=== PATIENT | male | born 1975 | race Asian ===

== ENCOUNTER → 2020-03-22 18:56 | Outpatient (CLI) | payer OTHER, SELFPAY ==
--- NOTE | 2020-03-22 18:58 | DI.MRI.S_ITS ---
PROCEDURE: MR KNEE LT WO CON INDICATIONS: PAIN IN LEFT KNEE TECHNIQUE: Noncontrast sagittal PD fast spin echo and T2 fast spin echo with fat saturation, sagittal 3-D FLASH with fat saturation; coronal T1 spin echo and PD fast spin echo with fat saturation, and axial PD fast spin echo with fat saturation through the knee. COMPARISON: None. FINDINGS: Image quality: Excellent. Menisci: The medial and lateral menisci demonstrate normal morphology and internal signal. The meniscal root ligaments appear intact. Cruciate ligaments: The anterior and posterior cruciate ligaments appear intact. Medial structures: There is thickening and increased signal intensity within the proximal medial collateral ligament with surrounding edema, compatible with a grade 2 sprain. The semimembranosus tendon insertions and meniscocapsular junction appear intact. Visualized portions of the pes anserinus tendons appear normal. No abnormal bursal fluid. Lateral structures: The lateral collateral ligament, long and short heads of the biceps femoris tendon appear intact. The popliteus tendon appears intact. No signs of posterolateral corner injury. Iliotibial band appears normal. Anterior structures: The quadriceps and patellar tendons appear intact. Patellar alignment is normal. No femoral trochlear dysplasia or ventral trochlear prominence. No edema in the infrapatellar fat pad. Bones and cartilage: No bone marrow contusions or fractures. The cartilage of the medial and lateral femorotibial compartments appears normal in thickness. There is deep cartilage fissuring in the medial patellar facet. Joint space: A small joint effusion is present. No significant medial popliteal cyst is seen. IMPRESSION: 1. Grade 2 sprain of the proximal medial collateral ligament. 2. Intact cruciate ligaments. No meniscal tear is seen. There is no acute trabecular bone injury. 3. Deep cartilage fissuring in the medial patellar facet. 4. Small joint effusion. Dictated by: Rishi Kapadia M.D. on 03/23/2020 at 9:00 Approved by: Rishi Kapadia M.D. on 03/23/2020 at 9:07
== END ==
PROVIDERS: Referring Provider Student in an Organized Health Care Education/Training Program; Visit Provider Student in an Organized Health Care Education/Training Program
DX: M25.562 Pain in left knee (principal); S83.412A Sprain of medial collateral ligament of left knee, initial encounter; M25.462 Effusion, left knee
CPT/HCPCS: 73721

== ENCOUNTER → 2020-11-20 09:30 | Outpatient (CLI) | payer OTHER, SELFPAY ==
[2020-11-20 10:33] LABS: COVID19 -Nasal RAPID Negative (Negative)
== END ==
PROVIDERS: Visit Provider Nurse Practitioner Family
DX: Z20.822 Contact with and (suspected) exposure to COVID-19 (principal); J02.9 Acute pharyngitis, unspecified; R05.9 Cough, unspecified
CPT/HCPCS: 87635

== ENCOUNTER 2022-05-26 12:18 | Emergency (ER) | payer OTHER, SELFPAY ==
[2022-05-26 12:27] VITALS: BP 139/83; PULSE 81; RESP 16; TEMP 36.8; O2SAT 98; BMI 23.0
[2022-05-26 13:11] LABS: Strep Grp A by PCR Rapid Positive (Negative)
[2022-05-26 13:16] LABS: COVID19 -Nasal RAPID Negative (Negative)
--- NOTE | 2022-05-26 13:16 | DI.CT.S_ITS ---
PROCEDURE: CT SOFT TISSUE NECK W CON INDICATIONS: rt peritonsillar abscess vs deep neck infection TECHNIQUE: After the administration of intravenous contrast, 3.0 mm axial sections acquired from the sella to the aortic arch. Additional oblique axial 3.0 mm sections acquired through the pharynx. 3 mm thick coronal and sagittal reformats were generated. For radiation dose reduction, the following was used: automated exposure control. COMPARISON: None. FINDINGS: Image quality: There is artifact associated with the metallic dental work. Lymph nodes: No enlarged lymph nodes seen throughout the neck. Vessels: Visualized vasculature appears patent. Neck spaces: In this patient with this given history, scrutiny is given to the right tonsil. Both tonsils appears swollen. Although poorly seen, secondary to streak artifact, there is mild fluid seen within the deep aspect of the right tonsil, as on series 2, image 33 and on series 6, image 33, measuring 1.3 cm. Mild mass effect can be seen upon the airway, as on series 6, image 33. There is also swelling of the palate seen, as on series 5, image 29 and on series 2, image 28. Swelling is also seen along the right aspect of the epiglottis, as seen on series 2, image 45. Glands: The parotid and submandibular glands appear normal. Thyroid gland demonstrates no significant abnormality. Miscellaneous: Visualized brain and orbits appear normal. Lung apices appear clear. Superficial soft tissues appear normal. Bones: No suspicious bony lesions. Visualized sinuses and mastoids appear unremarkable. IMPRESSION: Prominent generalized swelling seen involving the oropharynx, which is worse on the right than on the left. Likely early phlegmon seen within the right tonsil, yet without a drainable abscess. Mild mass effect can be seen upon the airway. ENT consultation is recommended. Dictated by: Ghassan Clark M.D. on 05/26/2022 at 14:20 Approved by: Ghassan Clark M.D. on 05/26/2022 at 14:23
--- NOTE | 2022-05-26 14:24 | ED.URI ---
HPI - URI/Sore Throat <GÉNESIS Sánchez - Last Filed: 05/26/22 16:32> General Chief Complaint: Upper Respiratory Symptoms Stated Complaint: fells like there is a throat infection, swelling Time Seen by Provider: 05/26/22 12:44 Mode of arrival: Ambulatory History of Present Illness HPI Narrative: This is a 47-year-old presents to the emergency department with a sore throat with swelling on the right side primarily for the last week. He endorses fatigue, chills, has not measured a fever but feels like he has gotten more ill and has had more pain as it has progressed in size and pain over the last week. He states that his son recently had a peritonsillar abscess that was drained in the emergency department, treated with antibiotics, and subsequently had a tonsillectomy. Patient has been recently exposed to group a strep. Has not had any antibiotics yet. Denies any allergies, states that he was seeing Dr. Barksdale for his son. He does not have a rash, states that he had difficulty sleeping due to pain and had to take some codeine to get to sleep. Related Data Previous Rx's Medication Instructions Recorded tramadol 50 mg tablet 1 - 2 tab PO Q4HP PRN #10 tabs 11/11/15 benzocaine 15 mg-menthol 3.6 mg 1 ronnie mucous membrane Q2-4H PRN 05/26/22 lozenges (Cepacol Sore Throat sore throat #16 ea (benzocaine-menthol)) clindamycin HCl 300 mg capsule 300 mg PO QID 10 days #40 caps 05/26/22 oxycodone 5 mg tablet 5 mg PO TID PRN pain #14 tabs 05/26/22 prednisone 20 mg tablet 40 mg PO DAILY 5 days #10 tabs 05/26/22 Allergies Allergy/AdvReac Type Severity Reaction Status Date / Time No Known Drug Allergies Allergy Verified 05/26/22 12:31 Review of Systems <GÉNESIS Sánchez - Last Filed: 05/26/22 16:32> Review of Systems ROS Unobtainable: All systems reviewed & are unremarkable except as noted in HPI and below Patient History <GÉNESIS Sánchez - Last Filed: 05/26/22 16:32> Social History Smoking Status: Never smoker Smoking Status: Never smoker tobacco type: vaping alcohol intake frequency: 3 or more drinks per day Substance Use Type: marijuana Exam <GÉNESIS Sánchez - Last Filed: 05/26/22 16:32> Narrative Exam Narrative: Reviewed vitals signs and nursing notes. General: Pleasant, sitting upright, in no acute distress, well groomed, afebrile HEENT: symmetrical facial expressions, moist mucous membranes, neck is supple, right anterior cervical lymphadenopathy, bilateral TMs with serous fluid behind, appear bulging, mild erythema to the right posterior canal, bilateral nares are patent, voice is muffled, large abscess appearing from the right tonsil with distortion of the uvula towards the left, bilateral tonsillar adenopathy, mild exudate to right tonsil CV: regular rate and rhythm, warm extremities Respiratory: normal work of breathing, without tachypnea or hypoxia. GI: abdomen soft, nondistended, without CVA tenderness bilaterally. MSK: moves all extremities, no weakness, normal tone, ambulatory without deficit Skin: brisk capillary refill, without rash or wound Neuro: Mildly muffled speech and normal cognition, A&O x3, GCS 15, no focal motor or sensation deficits Initial Vital Signs Initial Vital Signs: Vital Signs Temperature 98.3 F 05/26/22 12:27 Pulse Rate 81 05/26/22 12:27 Respiratory Rate 16 05/26/22 12:27 Blood Pressure 139/83 05/26/22 12:27 Pulse Oximetry 98 05/26/22 12:27 Oxygen Delivery Method Room Air 05/26/22 12:27 <Pradeep Rubio DO - Last Filed: 05/26/22 15:59> Initial Vital Signs Initial Vital Signs: Vital Signs Temperature 98.3 F 05/26/22 12:27 Pulse Rate 81 05/26/22 12:27 Respiratory Rate 16 05/26/22 12:27 Blood Pressure 139/83 05/26/22 12:27 Pulse Oximetry 98 05/26/22 12:27 Oxygen Delivery Method Room Air 05/26/22 12:27 Course <GÉNESIS Sánchez - Last Filed: 05/26/22 16:32> Orders Ordered: ED Orders 05/26/22 12:35 Strep Grp A by PCR Rapid Stat Throat Culture Stat 05/26/22 12:49 COVID19 -Nasal RAPID Stat 05/26/22 13:16 CT soft tissue neck w con Stat 05/26/22 14:24 CBC Auto Diff [Complete Blood Count AUTO DIFF] Stat CMP [Comprehensive Metabolic Panel] Stat 05/26/22 14:30 Lactate (Lactic Acid) Stat Discontinued Medications Clindamycin HCl (Clindamycin 150 Mg Capsule) 450 mg PO NOW ONE Stop: 05/26/22 13:17 Last Admin: 05/26/22 14:49 Dose: 450 mg Documented By: YFN Dexamethasone (Dexamethasone 4 Mg/Ml Vial) 16 mg IV NOW ONE Stop: 05/26/22 13:17 Last Admin: 05/26/22 15:31 Dose: Not Given Documented By: ALMA Hydromorphone HCl (Hydromorphone 0.5 Mg Inj) 0.5 mg IV NOW ONE Stop: 05/26/22 13:22 Last Admin: 05/26/22 14:56 Dose: 0.5 mg Documented By: YFN Sodium Chloride (Normal Saline 0.9%) 1,000 mls @ 1,000 mls/hr IV BOLUS ONE Stop: 05/26/22 14:21 Last Admin: 05/26/22 14:45 Dose: 1,000 mls/hr Documented By: YNF Dexamethasone 16 mg/ Sodium (Chloride) 51.6 mls @ 206.4 mls/hr IV NOW ONE Stop: 05/26/22 15:29 Last Admin: 05/26/22 15:27 Dose: 206.4 mls/hr Documented By: ALMA Ketorolac Tromethamine (Ketorolac 30 Mg/Ml Vial) 30 mg IV NOW ONE Stop: 05/26/22 13:22 Last Admin: 05/26/22 14:48 Dose: 30 mg Documented By: YFN Pantoprazole Sodium (Pantoprazole 40 Mg Vial) 20 mg IV NOW ONE Stop: 05/26/22 13:22 Last Admin: 05/26/22 14:55 Dose: 20 mg Documented By: YFN Penicillin G Benzathine (Penicillin G Benzathine 1,200,000 Unit/2 Ml Syringe) 1,200,000 unit IM NOW ONE Stop: 05/26/22 13:23 Last Admin: 05/26/22 15:00 Dose: 1,200,000 unit Documented By: YFN Vital Signs Vital signs: Vital Signs - 8 hr 05/26/22 12:27 Temperature 98.3 F Pulse Rate 81 Respiratory Rate 16 Blood Pressure 139/83 Pulse Oximetry 98 Oxygen Delivery Method Room Air <Pradeep Rubio DO - Last Filed: 05/26/22 15:59> Orders Ordered: ED Orders 05/26/22 12:35 Strep Grp A by PCR Rapid Stat Throat Culture Stat 05/26/22 12:49 COVID19 -Nasal RAPID Stat 05/26/22 13:16 CT soft tissue neck w con Stat 05/26/22 14:24 CBC Auto Diff [Complete Blood Count AUTO DIFF] Stat CMP [Comprehensive Metabolic Panel] Stat 05/26/22 14:30 Lactate (Lactic Acid) Stat Discontinued Medications Clindamycin HCl (Clindamycin 150 Mg Capsule) 450 mg PO NOW ONE Stop: 05/26/22 13:17 Last Admin: 05/26/22 14:49 Dose: 450 mg Documented By: YFN Dexamethasone (Dexamethasone 4 Mg/Ml Vial) 16 mg IV NOW ONE Stop: 05/26/22 13:17 Last Admin: 05/26/22 15:31 Dose: Not Given Documented By: ALMA Hydromorphone HCl (Hydromorphone 0.5 Mg Inj) 0.5 mg IV NOW ONE Stop: 05/26/22 13:22 Last Admin: 05/26/22 14:56 Dose: 0.5 mg Documented By: YFN Sodium Chloride (Normal Saline 0.9%) 1,000 mls @ 1,000 mls/hr IV BOLUS ONE Stop: 05/26/22 14:21 Last Admin: 05/26/22 14:45 Dose: 1,000 mls/hr Documented By: YFN Dexamethasone 16 mg/ Sodium (Chloride) 51.6 mls @ 206.4 mls/hr IV NOW ONE Stop: 05/26/22 15:29 Last Admin: 05/26/22 15:27 Dose: 206.4 mls/hr Documented By: ALMA Ketorolac Tromethamine (Ketorolac 30 Mg/Ml Vial) 30 mg IV NOW ONE Stop: 05/26/22 13:22 Last Admin: 05/26/22 14:48 Dose: 30 mg Documented By: YFN Pantoprazole Sodium (Pantoprazole 40 Mg Vial) 20 mg IV NOW ONE Stop: 05/26/22 13:22 Last Admin: 05/26/22 14:55 Dose: 20 mg Documented By: YFN Penicillin G Benzathine (Penicillin G Benzathine 1,200,000 Unit/2 Ml Syringe) 1,200,000 unit IM NOW ONE Stop: 05/26/22 13:23 Last Admin: 05/26/22 15:00 Dose: 1,200,000 unit Documented By: YFN Vital Signs Vital signs: Vital Signs - 8 hr 05/26/22 12:27 Temperature 98.3 F Pulse Rate 81 Respiratory Rate 16 Blood Pressure 139/83 Pulse Oximetry 98 Oxygen Delivery Method Room Air MDM - URI/Sore Throat <MELISSA SánchezP - Last Filed: 05/26/22 16:32> Lab Data 05/26/22 14:24 05/26/22 14:24 Labs: Lab Results 05/26/22 05/26/22 05/26/22 Range/Units 12:35 12:49 14:24 WBC 11.9 H (4.5-11.0) X10^3/uL RBC 4.73 (4.5-5.9) X10^6/uL Hgb 14.9 (13.5-17.5) g/dL Hct 43.5 (41-53) % MCV 92.0 (80-100) fL MCH 31.5 (26-34) PG MCHC 34.3 (30-36) % RDW 12.9 (11.6-14.8) % Plt Count 228 (150-400) X10^3/uL Neut % (Auto) 74.5 (50-75) % Lymph % (Auto) 9.3 L (25-40) % [place] % (Auto) 14.4 H (3-14) % Eos % (Auto) 1.7 L (2-4) % Baso % (Auto) 0.1 (0-2) % Neut # (Auto) 8900 H (9339-6752) /uL Lymph # (Auto) 1100 (2706-3036) /uL [place] # (Auto) 1700 H (0-900) /uL Eos # (Auto) 200 (0-450) /uL Baso # (Auto) 0 (0-100) /uL Sodium (137-145) mmol/L Potassium (3.4-5.1) mmol/L Chloride (98-107) mmol/L Carbon Dioxide (22-32) mmol/L BUN (9-20) mg/dL Creatinine (0.66-1.25) mg/dL Estimated GFR (>60) mL/min BUN/Creatinine Ratio (6-22) Glucose (70-100) mg/dL Lactate (0.7-2.1) mmol/L Calcium (8.4-10.2) mg/dL Total Bilirubin (0.2-1.3) mg/dL AST (17-59) IU/L ALT (<50) IU/L Alkaline Phosphatase (38-126) U/L Total Protein (6.3-8.2) g/dL Albumin (3.5-5.0) g/dL Globulin (1.7-4.1) g/dL Albumin/Globulin Ratio (1.0-2.8) SARS-CoV-2 (PCR) Negative (Negative) Group A Strep (PCR) Positive H (Negative) 05/26/22 05/26/22 Range/Units 14:24 14:30 WBC (4.5-11.0) X10^3/uL RBC (4.5-5.9) X10^6/uL Hgb (13.5-17.5) g/dL Hct (41-53) % MCV (80-100) fL MCH (26-34) PG MCHC (30-36) % RDW (11.6-14.8) % Plt Count (150-400) X10^3/uL Neut % (Auto) (50-75) % Lymph % (Auto) (25-40) % [place] % (Auto) (3-14) % Eos % (Auto) (2-4) % Baso % (Auto) (0-2) % Neut # (Auto) (3112-3067) /uL Lymph # (Auto) (4873-3638) /uL [place] # (Auto) (0-900) /uL Eos # (Auto) (0-450) /uL Baso # (Auto) (0-100) /uL Sodium 137 (137-145) mmol/L Potassium 3.9 (3.4-5.1) mmol/L Chloride 103 (98-107) mmol/L Carbon Dioxide 30 (22-32) mmol/L BUN 7 L (9-20) mg/dL Creatinine 0.63 L (0.66-1.25) mg/dL Estimated GFR > 60 (>60) mL/min BUN/Creatinine Ratio 11.1 (6-22) Glucose 92 (70-100) mg/dL Lactate 0.9 (0.7-2.1) mmol/L Calcium 8.9 (8.4-10.2) mg/dL Total Bilirubin 1.2 (0.2-1.3) mg/dL AST 25 (17-59) IU/L ALT 21 (<50) IU/L Alkaline Phosphatase 87 (38-126) U/L Total Protein 7.3 (6.3-8.2) g/dL Albumin 3.8 (3.5-5.0) g/dL Globulin 3.5 (1.7-4.1) g/dL Albumin/Globulin Ratio 1.1 (1.0-2.8) SARS-CoV-2 (PCR) (Negative) Group A Strep (PCR) (Negative) Imaging Data CT soft tissue neck: Radiologist's Impression: PROCEDURE:? CT SOFT TISSUE NECK W CON ? INDICATIONS:? rt peritonsillar abscess vs deep neck infection ? TECHNIQUE:? After the administration of intravenous contrast, 3.0 mm axial sections acquired from the sella to the aortic arch.? Additional oblique axial 3.0 mm sections acquired through the pharynx.? 3 mm thick coronal and sagittal reformats were generated.? For radiation dose reduction, the following was used:? automated exposure control.? ? COMPARISON:? None. ? FINDINGS:? Image quality:? There is artifact associated with the metallic dental work. ? ? Lymph nodes:? No enlarged lymph nodes seen throughout the neck.? ? Vessels:? Visualized vasculature appears patent.? ? Neck spaces:? In this patient with this given history, scrutiny is given to the right tonsil.? Both tonsils appears swollen.? Although poorly seen, secondary to streak artifact, there is mild fluid seen within the deep aspect of the right tonsil, as on series 2, image 33 and on series 6, image 33, measuring 1.3 cm.? Mild mass effect can be seen upon the airway, as on series 6, image 33. There is also swelling of the palate seen, as on series 5, image 29 and on series 2, image 28. Swelling is also seen along the right aspect of the epiglottis, as seen on series 2, image 45. ? Glands:? The parotid and submandibular glands appear normal.? Thyroid gland demonstrates no significant abnormality.? ? Miscellaneous:? Visualized brain and orbits appear normal.? Lung apices appear clear.? Superficial soft tissues appear normal. ? Bones:? No suspicious bony lesions.? Visualized sinuses and mastoids appear unremarkable. ? ? ? IMPRESSION:? Prominent generalized swelling seen involving the oropharynx, which is worse on the right than on the left. ? Likely early phlegmon seen within the right tonsil, yet without a drainable abscess. ? Mild mass effect can be seen upon the airway. ? ENT consultation is recommended. ? Dictated by: Ghassan Clark M.D. on 05/26/2022 at 14:20 ? ? Approved by: Ghassan Clark M.D. on 05/26/2022 at 14:23 ? MDM Narrative Medical decision making narrative: Chief Complaint: Sore throat Multiple etiologies for patient's symptoms considered including, but not limited to: Peritonsillar abscess, epiglottitis retropharyngeal abscess/cellulitis, parapharyngeal abscess, Streptococcus group infection tonsillopharyngitis, other viral infection I have independently reviewed the patient's vital signs and nursing notes as well as prior records if available. Pertinent records include: Pertinent lab findings reviewed: Rapid group a strep is positive Pertinent Imaging reviewed: CT soft tissue neck is positive for prominent generalized edema of the oropharynx greater on the right than the left without drainable abscess, mild mass effect on airway Course of care: Delay of care due to emergency in the department, at 14:00, I was available to place IV for patient, sat down blood work for labs and called CT for imaging. On exam, posterior pharynx is erythematous, uvula is distorted, large peritonsillar abscess with muffled voice, without trismus, patient has full range of motion of his neck, no meningeal signs, no over next swelling or mass, there is anterior cervical lymphadenopathy on the right but nodes are less than 1 cm Ordered 1 L of fluid, pain control, antibiotics, throat culture is pending Consultations: ENT consultation was initiated at 15:[address] Kevin Brown called back, discussed that patient's CT is concerning for peritonsillar cellulitis without drainable abscess. Discussed treatment plan to include penicillin G IM today, dexamethasone 16 mg IV, 1 L normal saline, and discharge home with clindamycin q.i.d. times 10 days. He will call the ENT office tomorrow to schedule follow-up depending on how he is feeling. Patient has mild mass effect of his airway, he does not have stridor, he is able to swallow and is p.o. tolerant at this time. He reports feeling better after the medications he received in the fluid. He understands return for difficulty breathing, swallowing, if he has worsening symptoms or fever and chills with vomiting. Social considerations that may affect disposition: none Questions are addressed and there is agreement with the plan and for follow-up. Patient is appropriate for outpatient management. <Pradeep Rubio, - Last Filed: 05/26/22 15:59> Lab Data Labs: Lab Results 05/26/22 05/26/22 05/26/22 Range/Units 12:35 12:49 14:24 WBC 11.9 H (4.5-11.0) X10^3/uL RBC 4.73 (4.5-5.9) X10^6/uL Hgb 14.9 (13.5-17.5) g/dL Hct 43.5 (41-53) % MCV 92.0 (80-100) fL MCH 31.5 (26-34) PG MCHC 34.3 (30-36) % RDW 12.9 (11.6-14.8) % Plt Count 228 (150-400) X10^3/uL Neut % (Auto) 74.5 (50-75) % Lymph % (Auto) 9.3 L (25-40) % [place] % (Auto) 14.4 H (3-14) % Eos % (Auto) 1.7 L (2-4) % Baso % (Auto) 0.1 (0-2) % Neut # (Auto) 8900 H (3121-8948) /uL Lymph # (Auto) 1100 (7376-9913) /uL [place] # (Auto) 1700 H (0-900) /uL Eos # (Auto) 200 (0-450) /uL Baso # (Auto) 0 (0-100) /uL Sodium (137-145) mmol/L Potassium (3.4-5.1) mmol/L Chloride (98-107) mmol/L Carbon Dioxide (22-32) mmol/L BUN (9-20) mg/dL Creatinine (0.66-1.25) mg/dL Estimated GFR (>60) mL/min BUN/Creatinine Ratio (6-22) Glucose (70-100) mg/dL Lactate (0.7-2.1) mmol/L Calcium (8.4-10.2) mg/dL Total Bilirubin (0.2-1.3) mg/dL AST (17-59) IU/L ALT (<50) IU/L Alkaline Phosphatase (38-126) U/L Total Protein (6.3-8.2) g/dL Albumin (3.5-5.0) g/dL Globulin (1.7-4.1) g/dL Albumin/Globulin Ratio (1.0-2.8) SARS-CoV-2 (PCR) Negative (Negative) Group A Strep (PCR) Positive H (Negative) 05/26/22 05/26/22 Range/Units 14:24 14:30 WBC (4.5-11.0) X10^3/uL RBC (4.5-5.9) X10^6/uL Hgb (13.5-17.5) g/dL Hct (41-53) % MCV (80-100) fL MCH (26-34) PG MCHC (30-36) % RDW (11.6-14.8) % Plt Count (150-400) X10^3/uL Neut % (Auto) (50-75) % Lymph % (Auto) (25-40) % [place] % (Auto) (3-14) % Eos % (Auto) (2-4) % Baso % (Auto) (0-2) % Neut # (Auto) (2605-6973) /uL Lymph # (Auto) (1890-2691) /uL [place] # (Auto) (0-900) /uL Eos # (Auto) (0-450) /uL Baso # (Auto) (0-100) /uL Sodium 137 (137-145) mmol/L Potassium 3.9 (3.4-5.1) mmol/L Chloride 103 (98-107) mmol/L Carbon Dioxide 30 (22-32) mmol/L BUN 7 L (9-20) mg/dL Creatinine 0.63 L (0.66-1.25) mg/dL Estimated GFR > 60 (>60) mL/min BUN/Creatinine Ratio 11.1 (6-22) Glucose 92 (70-100) mg/dL Lactate 0.9 (0.7-2.1) mmol/L Calcium 8.9 (8.4-10.2) mg/dL Total Bilirubin 1.2 (0.2-1.3) mg/dL AST 25 (17-59) IU/L ALT 21 (<50) IU/L Alkaline Phosphatase 87 (38-126) U/L Total Protein 7.3 (6.3-8.2) g/dL Albumin 3.8 (3.5-5.0) g/dL Globulin 3.5 (1.7-4.1) g/dL Albumin/Globulin Ratio 1.1 (1.0-2.8) SARS-CoV-2 (PCR) (Negative) Group A Strep (PCR) (Negative) Discharge Plan Departure Patient Disposition: Home Clinical Impression: Group A streptococcal infection, Peritonsillar cellulitis Instructions: Strep Throat Activity Restrictions/Additional Instructions: *You have been diagnosed with group a strep infection of your throat without a drainable abscess. You have what is called a phlegmon and this is early abscess developing so we call this peritonsillar cellulitis at this point. This antibiotic should take care of this and should go down markedly after today. I have consulted with ear nose and throat and Dr. Brown Is one of Dr. Barksdale's partners, he says that he recommends that you call tomorrow let them know how you are feeling and they will make your appointment a little further out if you are doing better to see how your courses. He says that he 100% agrees with the plan of care and will be happy to see you in the clinic either him or 1 of his partners. Please call them tomorrow. I have given you throat lozenges, an antibiotic to take 4 times a day for the next 10 days, oxycodone small tabs as needed for pain, and prednisone with a taper. Please take ibuprofen 600 mg every 6 hours as able, this will give you good pain relief. Please also take omeprazole while you are on steroids and anti-inflammatories. Please take your medicines with food. Please stay hydrated with plenty of clear fluids, follow-up with your primary care provider as, come back if you have difficulty swallowing, difficulty breathing, can not tolerate fluids or if you can not sleep. *What to do: *Please continue to take your regular medications as directed. [ x] New medication prescriptions sent to your pharmacy: [[facility] ] [ ] New medication written as a paper prescription [ ] No new medications given *Please call and schedule follow up with your primary care provider in 2-3 days, at least for an update. Let them know you were seen in the Emergency Department for the above problem. We will electronically transmit a record of today's note if your PCP or specialist is in our system. *If you do not have a primary care provider please contact [phone] to establish care with one of the [facility] primary care providers. *Return to the Emergency Department for worsening symptoms, inability to keep liquids down, fever greater than 101F, chills, or other concerning symptom. Prescriptions: New clindamycin HCl 300 mg capsule 300 mg PO QID 10 Days Qty: 40 0RF oxycodone 5 mg tablet 5 mg PO TID PRN (Reason: pain) Qty: 14 0RF prednisone 20 mg tablet 40 mg PO DAILY 5 Days Qty: 10 0RF Rx Instructions: Take 40 for the 1st 2 days, 30 on the 3rd day, 20 daily and split the last tab into 2, 10 mg doses to complete Cepacol Sore Throat (agatha-men) 15-3.6 mg lozenge 1 ronnie mucous membrane Q2-4H PRN (Reason: sore throat) Qty: 16 0RF No Action tramadol 50 MG tablet 1 - 2 tab PO Q4HP PRNQty: 10 0RF Referrals: Jamar Brown MD [Physician] - Priom Barksdale MD [Physician] - Miscellaneous,MD Andrews [Primary Care Provider] - Stand Alone Forms: Patient Portal/API <Pradeep Rubio DO - Last Filed: 05/26/22 15:59> [facility] Dr Rubio Co-Sign Statement: I was available for consultation during this patient's emergency department visit. This chart is signed by myself for administrative purposes only. I did not have direct contact with this patient during this visit. They were seen independently by the APC.
[2022-05-26 14:28] LABS: Add Manual Diff / Slide Review NO; Basophils Absolute Auto 0 /uL (0-100); Basophils Percent Auto 0.1 % (0-2); Eosinophils Absolute Auto 200 /uL (0-450); Eosinophils Percent Auto 1.7 % (2-4); Hematocrit 43.5 % (41-53); Hemoglobin 14.9 g/dL (13.5-17.5); Lymphocytes Absolute Auto 1100 /uL (1100-4500); Lymphocytes Percent Auto 9.3 % (25-40); Mean Corpuscular HGB Conc 34.3 % (30-36); Mean Corpuscular Hemoglobin 31.5 PG (26-34); Monocytes Absolute Auto 1700 /uL (0-900); Monocytes Percent Auto 14.4 % (3-14); Neutrophils Absolute Auto 8900 /uL (1500-7000); Neutrophils Percent Auto 74.5 % (50-75); Platelet Count 228 X10^3/uL (150-400); Red Blood Cell Count 4.73 X10^6/uL (4.5-5.9); Red Cell Distribution Width 12.9 % (11.6-14.8); White Blood Cell Count 11.9 X10^3/uL (4.5-11.0)
[2022-05-26 14:40] LABS: Alanine Aminotransferase 21 IU/L (<50); Albumin 3.8 g/dL (3.5-5.0); Albumin Globulin Ratio 1.1 (1.0-2.8); Alkaline Phosphatase 87 U/L (38-126); Aspartate Aminotransferase 25 IU/L (17-59); BUN Creatinine Ratio 11.1 (6-22); Bilirubin Total 1.2 mg/dL (0.2-1.3); Blood Urea Nitrogen 7 mg/dL (9-20); Calcium 8.9 mg/dL (8.4-10.2); Carbon Dioxide 30 mmol/L (22-32); Chloride 103 mmol/L (98-107); Estimated Glomerular Filt Rate > 60 mL/min (>60); Globulin 3.5 g/dL (1.7-4.1); Glucose 92 mg/dL (70-100); HEMOLYSIS < 15 (0-50); Potassium 3.9 mmol/L (3.4-5.1); Sodium 137 mmol/L (137-145); Total Protein 7.3 g/dL (6.3-8.2)
[2022-05-26] MEDS: SODIUM CHLORIDE 0.9% 1,000 ML 1000 ML IV (14:45)
[2022-05-26] MEDS: KETOROLAC 30 MG/ML VIAL IV (14:48)
[2022-05-26] MEDS: CLINDAMYCIN 150 MG CAPSULE 450 MG PO (14:49)
[2022-05-26 14:53] LABS: Lactate (Lactic Acid) 0.9 mmol/L (0.7-2.1)
[2022-05-26] MEDS: PANTOPRAZOLE 40 MG VIAL 20 MG IV (14:55)
[2022-05-26] MEDS: HYDROMORPHONE 0.5 MG INJ IV (14:56)
[2022-05-26] MEDS: PENICILLIN G BENZATHINE 1,200,000 UNIT/2 ML SYRINGE 1200000 UNIT IM (15:00)
--- NOTE | 2022-05-26 15:08 | PC.NURSE ---
Meds given late. Primary nurse in a trauma.
[2022-05-26 16:05] VITALS: BP 131/87; PULSE 74; RESP 16; TEMP 37.1; O2SAT 99
== END 2022-05-26 16:07 | disposition home or self-care (01) ==
PROVIDERS: Emergency Medicine; Emergency Provider Nurse Practitioner Critical Care Medicine
DX: J02.0 Streptococcal pharyngitis (principal); Z20.822 Contact with and (suspected) exposure to COVID-19
CPT/HCPCS: 36415; 70491; 80053; 83605; 85025; 87070; 87077; 87635; 87651; 96365; 96372; 96375; 99284; C9803; C9113; J0561; J1100; J1170; J1885; Q9967